=== PATIENT | female | born 1945 | race Caucasian/White ===

== ENCOUNTER 2016-07-19 06:02 | Inpatient (IN) | payer MEDICARE, SELFPAY ==
[2016-07-14 15:57] LABS: BASOPHILS 1.2 %; BASOPHILS ABSOLUTE 0.06 10/3/uL (0.0-0.16); EOSINOPHILS 5.8 %; HEMATOCRIT 33.7 % (36.0-48.0); IMMATURE GRANULOCYTES 0.2 %; IMMATURE GRANULOCYTES ABSOLUTE 0.01 10/3/uL (0.0-0.11); LYMPHOCYTES 32.7 %; MEAN CORPUS HGB CONC 32.6 g/dL (32.0-36.0); MEAN CORPUSCULAR HEMOGLOB 33.1 pg (26.0-34.0); MEAN CORPUSCULAR VOLUME 101.5 fL (80-100); MEAN PLATELET VOLUME 10.3 fL (9.2-13.0); MONOCYTES 7.1 %; MONOCYTES ABSOLUTE 0.37 10/3/uL (0.21-1.20); NEUTROPHILS ABSOLUTE 2.76 10/3/uL (2.02-8.40); PLATELET COUNT 169 10/3/uL (150-400); RED CELL COUNT 3.32 10/6/uL (4.0-5.6); WHITE BLOOD CELLS 5.2 10/3/uL (4.5-10.5)
[2016-07-14 16:07] LABS: A/G RATIO 1.1 (0.7-1.9); ALBUMIN 3.7 G/DL (3.5-5.0); BUN (BLOOD UREA NITROGEN) 15 MG/DL (6-23); CALCIUM, SERUM 8.9 MG/DL (8.5-10.4); CHLORIDE, SERUM 110 MMOL/L (96-112); CO2 (CARBON DIOXIDE) 30 MMOL/L (24-34); CREATININE 0.69 MG/DL (0.55-1.02); GFR AFRICAN AMERICAN 104 ML/MIN (>=60); GFR NON AFRICAN AMERICAN 89 ML/MIN (>=60); GLOBULIN 3.5 G/DL (2.5-4.1); POTASSIUM, SERUM 3.9 MMOL/L (3.5-5.3); SGOT(AST) 26 U/L (5-40); SGPT(ALT) 25 U/L (5-65); SODIUM, SERUM 145 MMOL/L (135-148); TOTAL PROTEIN 7.2 G/DL (6.0-8.5)
[2016-07-14 16:08] LABS: ALKALINE PHOSPHATASE 84 U/L (45-117); GLUCOSE, SERUM 74 MG/DL (60-99); TOTAL BILIRUBIN 0.4 MG/DL (0-1.2)
[2016-07-14 16:11] LABS: INTERNATIONAL NORMAL RATI 1.2 UNITS (-); PROTIME (NOT ORD) 14.6 SEC (12.0-14.5)
[2016-07-14 16:13] LABS: MANUAL DIFF NO %
[2016-07-14 16:52] LABS: ASCORBIC ACID (UR NOT ORDER) NEG (NEG); BILIRUBIN, URINE NEGATIVE (NEG); KETONE, URINE NEGATIVE (NEG); LEUKOCYTE ESTERASE(NOT OR NEG (NEG); WBC (NOT ORDERED) (RFLEX) 1 (0-5)
--- NOTE | ~2016-07-19 | CN ---
Consultation Report [facility] [address] [place]. [address] NAME: SHAHEEN CORTEZ : 49 STATUS : ADM IN PAT#: [id number] AGE: 70 ADM/REG DATE : 07/19/16 MR#: [id number] REPORT SERV DATE: 07/25/16 DICTATED BY: IGOR MONACO DATE: 07/25/16 REPORT STATUS : Draft TRANSCRIBED BY: ANITA DATE: 07/25/16 DATE OF CONSULTATION: 07/25/2016 SERVICE: Otolaryngology. REFERRING DIAGNOSIS: Dysphagia. HISTORY OF PRESENT ILLNESS: This is a 70-year-old white female with multiple comorbidities, who underwent a left carotid endarterectomy about six days ago. She had some rebleeding and I had to go in and re-explore the wound. Since that time, she has developed significant dysphagia, which per the primary team has improved. Over the past few days, her wound has also improved. I was asked to come and evaluate for any problems in the hypopharynx that maybe leading to her dysphagia. PAST MEDICAL HISTORY: Includes diverticulosis, coronary artery disease, peripheral vascular disease, diabetes, morbid obesity, rheumatoid arthritis, history of stroke, and hypertension. PAST SURGICAL HISTORY: Includes gastric bypass, coronary artery bypass grafting, left carotid endarterectomy, appendectomy, partial thyroidectomy, cholecystectomy, and hernia repair. SOCIAL HISTORY: Denies use of tobacco or alcohol. ALLERGIES: SHE IS ALLERGIC TO LIDOCAINE. PHYSICAL EXAMINATION: The patient was awake, alert, in no acute distress with a pleasant affect. She had an obvious swelling in the left neck with an incision that was healing well. Palpation of that area revealed somewhat firm swelling around the area of the incision. The patient spoke with a normal voice and was breathing without laboring. PROCEDURE NOTE: After I discussed the fiberoptic laryngoscopy with the patient, I coated the scope with lubricant, passed it through the left side of the nose. I was able to see well through her nasal cavity. Nasopharyngeal mucosa and eustachian tube ostium were normal in appearance. Further back, she had normal and symmetric lingual tonsils. The hypopharyngeal mucosa was normal. She had good adduction and abduction of her vocal cords. She did have significant ecchymosis and some mild swelling of the left arytenoid and in the piriform sinus on that side, the side of the surgery. There was no pooling of saliva. The patient otherwise seemed to be swallowing well. She tolerated this procedure well without complications. ASSESSMENT: Dysphagia. According to the primary team, the patient did have some preoperative dysphagia, although it was not as bad as it is now. She is not currently tolerating a soft diet as she was before. Given my examination today, I believe this will Consultation Report [address] [facility] [place] [address] NAME: SHAHEEN CORTEZ : [birth year] STATUS : ADM IN [facility]#: [id number] AGE: 70 ADM/REG DATE : 07/19/16 MR#: [id number] REPORT SERV DATE: 07/25/16 DICTATED BY: IGOR MONACO DATE: 07/25/16 REPORT STATUS : Draft TRANSCRIBED BY: ANITA DATE: 07/25/16 recover with a little more time. She had significant bruising and swelling on the left side of her neck, and I believe that is the chief cause of her dysphagia. There was no evidence of vocal cord dysfunction or significant airway or orodigestive tract swelling that would explain her dysphagia. Thank you for this consultation. If there are any questions, please do not hesitate to call [phone]. PS/ANITA Igor Monaco MD / [id number] CC: Fortunato Paez M.D.
--- NOTE | ~2016-07-19 | OP ---
Record Of Operation [facility] [address] [place]. [address] NAME: SHAHEEN CORTEZ : [birth year] STATUS : ADM IN PAT#: [id number] AGE: 70 ADM/REG DATE : 07/19/16 MR#: [id number] REPORT SERV DATE: 07/19/16 DICTATED BY: FORTUNATO BILLY DATE: 07/19/16 REPORT STATUS : Draft TRANSCRIBED BY: MODL DATE: 07/19/16 DATE OF PROCEDURE: 07/19/2016 PREOPERATIVE DIAGNOSIS: Left neck swelling status post left carotid endarterectomy. POSTOPERATIVE DIAGNOSIS: Left neck swelling status post left carotid endarterectomy with severe hypertension and left neck hematoma. OPERATIVE PROCEDURES: Left neck exploration for evacuation of hematoma status post left carotid endarterectomy. OPERATIVE SURGEON: Fortunato Billy M.D. ANESTHESIA: General endotracheal anesthesia, AA. PERTINENT HISTORY: The patient is a 70-year-old female approximately 3 hours status post left carotid endarterectomy patch found to have swelling in the neck after a period of severe hypertension. The patient had the swelling occur acutely, and therefore was returned to the operating room. OPERATIVE FINDINGS: The patient had no active hemorrhage in the surgical site. The carotid endarterectomy patch was hemostatic with excellent pulse distally. There was fluid and some old clot in the left neck wound which was completely evacuated. OPERATIVE PROCEDURE: The patient was taken to the operating room and placed in supine position. Anesthesia was obtained with endotracheal intubation. The patient's left neck were then prepped and draped in usual fashion. Left neck incision was opened. A small amount of fluid and small amount of hematoma was encountered around the carotid artery. This was completely evacuated. The space was irrigated with copious amounts of saline, and the carotid artery patch was examined closely and found to be hemostatic as was the suture line. No surgical hemorrhage was noted, and the pack was placed in the neck and allowed to remain in place for 5 minutes. Pack was removed, and excellent hemostasis was noted. The deep cervical fascia was closed with running #1 Stratafix suture. The platysma muscle was closed with running #1 Stratafix suture. The skin was approximated with running 2-0 Stratafix suture. Sterile dressings were applied. The patient tolerated the procedure well and extubated in the operating room, and taken to the recovery room in stable condition. SHARON/ANITA Fortunato Billy M.D. / [id number] Record Of Operation [facility] [address] [place]. [address] NAME: SHAHEEN CORTEZ GALINA : 49 STATUS : ADM IN PAT#: [id number] AGE: 70 ADM/REG DATE : 07/19/16 MR#: [id number] REPORT SERV DATE: 07/19/16 DICTATED BY: FORTUNATO BILLY DATE: 07/19/16 REPORT STATUS : Draft TRANSCRIBED BY: ANITA DATE: 07/19/16 CC: Fortunato Billy M.D.
--- NOTE | ~2016-07-19 | OP ---
Record Of Operation [facility] [address] [place]. [address] NAME: SHAHEEN CORTEZ : 49 STATUS : ADM IN PAT#: [id number] AGE: 70 ADM/REG DATE : 07/19/16 MR#: [id number] REPORT SERV DATE: 07/19/16 DICTATED BY: FORTUNATO PAEZ DATE: 07/19/16 REPORT STATUS : Draft TRANSCRIBED BY: MODL DATE: 07/19/16 DATE OF PROCEDURE: 07/19/2016 PREOPERATIVE DIAGNOSIS: Ulcerated carotid artery stenosis, left with symptoms. POSTOPERATIVE DIAGNOSIS: Ulcerated carotid artery stenosis, left with symptoms. PROCEDURE: Left carotid endarterectomy with shunt, and CorMatrix arterioplasty. OPERATIVE SURGEON: Fortunato Paez M.D. ANESTHESIA: General endotracheal anesthesia, AA. DRAINS: No drains were placed. PERTINENT HISTORY: The patient is a 70-year-old female, referred by Dr. Azul with symptomatic left carotid artery stenoses, she had previous coronary artery bypass grafting. OPERATIVE FINDINGS: The patient had a tight stenoses involving the left common internal carotid artery with a large ulcerated plaque. OPERATIVE PROCEDURE: The patient was taken to the operating room and placed in position and anesthesia obtained. The patient was prepped and draped in the usual fashion. The left neck was then prepped and draped in the usual manner, and left neck incision was made into the sternocleidomastoid muscle. Platysma muscle was incised. The deep cervical fascia was incised. Retractors were placed. The carotid sheath was then identified, the hypoglossal nerve was identified and preserved. The carotid sheath was opened. The vagus nerve was identified and preserved. The common internal and external carotid arteries were all dissected and looped with vessel loops. Heparin was then infused and allowed to circulate for three minutes. Clamps were applied. The common carotid artery was opened, the arteriotomy extended across the plaque into the internal carotid artery. A #10 flexible [place] shunt was placed re-establishing flow, meticulous dissection was then required to remove the entire plaque from the common internal carotid arteries. This was removed in its entirety. A CorMatrix arterioplasty was brought on to the field, and cut to appropriate shape and length. Arterioplasty was then closed with running 7-0 Prolene suture. Shunt was removed. Good hemostasis was noted. Good Doppler signal was noted distally. The wound was irrigated with antibiotic saline. The deep cervical fascia closed with Stratafix suture with #1 size. The platysma was closed running #1 Stratafix suture. The skin and subcu tissue were closed in two layer fashion. Sterile dressings were applied. The patient tolerated the procedure well and extubated in the operating room, and taken to the recovery room in stable condition. SHARON/ANITA Record Of [address] [address] NAME: SHAHEEN CORTEZ : 49 STATUS : ADM IN [facility]#: [id number] AGE: 70 ADM/REG DATE : 07/19/16 MR#: [id number] REPORT SERV DATE: 07/19/16 DICTATED BY: FORTUNATO PAEZ DATE: 07/19/16 REPORT STATUS : Draft TRANSCRIBED BY: ANITA DATE: 07/19/16 Fortunato Paez M.D. / [id number] CC: Fortunato Paez M.D.
--- NOTE | ~2016-07-19 | DS ---
Discharge Summary [facility] [address] [place]. [address] NAME: SHAHEEN CORTEZ : 49 STATUS : DIS IN PAT#: [id number] AGE: 70 ADM/REG DATE : 07/19/16 MR#: [id number] REPORT SERV DATE: 08/05/16 DICTATED BY: FORTUNATO PAEZ DATE: 08/04/16 REPORT STATUS : Draft TRANSCRIBED BY: ANITA DATE: 08/04/16 Data Collection from hospitalization DISCHARGE DIAGNOSES: 1. Ulcerated carotid artery stenosis-left. 2. Type 2 diabetes mellitus. 3. Hypertension. 4. History of transient ischemic attack. 5. Coronary artery disease. 6. Attention-deficit hyperactivity disorder. 7. Anxiety and depression. 8. Anemia. 9. History of breast cancer. CONSULTANTS: 1. Bari Harden MD. 2. Bronson Azul M.D. PROCEDURES: 1. Left carotid endarterectomy with shunt and CorMatrix arterioplasty, 07/19/2016. 2. Left neck exploration for evacuation of hematoma, status post left carotid endarterectomy, 07/19/2016. PATHOLOGY: Carotid artery left endarterectomy-atheromatous plaque. DISCHARGE MEDICATIONS: Adderall 10 mg twice a day, aspirin 325 mg daily, vitamin B12 1000 mcg IM monthly, ferrous sulfate 300 mg daily, Lopid 600 mg twice a day, Amaryl 4 mg daily, Synthroid 175 mcg daily, Cozaar 25 mg daily, Centrum tablet one tablet daily, Nitrostat 0.4 mg sublingually as needed, Prilosec 20 mg twice a day, Evista 60 mg at bedtime, Aldactone 25 mg twice a day as needed, Ultram 50 mg every 12 hours as needed, folic acid 1 tablet daily. CONDITION ON DISCHARGE: Stable. DISPOSITION: The patient was discharged home on a regular diet with activities as instructed. Follow up with Dr. Bronson Azul, 08/07/2016; and would follow up with Dr. Power Purdy, 08/09/2016. She would follow up with nh, 08/21/2016. HOSPITAL COURSE: This is a 70-year-old female who has been referred by Dr. Azul with symptomatic left carotid artery stenosis. She had undergone previous coronary artery bypass grafting. Treatment options were discussed, and it was elected to proceed with surgical intervention. She was admitted to the hospital at this time for further evaluation and treatment. Upon admission, she was taken to the operating room where she underwent the above-mentioned procedure. She tolerated this well. There were no complications. Approximately 3 hours postoperatively, the patient was found to have swelling in the neck after a period of severe hypertension. The patient has swelling that occurred acutely and was taken back to the operating room where she underwent the above-mentioned procedure. She tolerated this well. Discharge Summary [address] [address] NAME: SHAHEEN CORTEZ : 49 STATUS : DIS IN PAT#: [id number] AGE: 70 ADM/REG DATE : 07/19/16 MR#: [id number] REPORT SERV DATE: 08/05/16 DICTATED BY: FORTUNATO PAEZ DATE: 08/04/16 REPORT STATUS : Draft TRANSCRIBED BY: ANITA DATE: 08/04/16 There were no complications. On postop day #1, she did complain of some difficulty swallowing. She was in a sinus rhythm. Swallow studies were going to be performed. Speech/Language Pathology performed a bedside swallow study. Aspiration precautions were in place. She was seen by Dr. Bronson Azul. The patient was comfortable and alert. She had some slight dysphagia. Her speech was not as clear as normal. On 07/21/2016, her speech had improved. She said that swallowing felt better, but she was unable to tolerate pills. Her voice quality was more clear. She had mild edema about the wound. Speech/Language Pathology performed bedside swallow study. There was moderately sluggish laryngeal elevation. Aspiration precautions remained in place. On 07/22/2016, chest x-ray was negative. Her lungs were clear. She remained n.p.o. She had no cardiovascular issues at this time. On 07/23/2016, she had adequate urine output. Left neck edema was decreasing. Her voice was becoming stronger. Repeat swallow study was going to be performed. Speech/Language Pathology performed bedside swallow evaluation. There were no overt signs or symptoms of aspiration. On 07/25/2016, her wound looked okay. She appeared to have good incisional healing. She was tolerating a pureed diet but was not tolerating mechanical soft. She was seen in consultation by Dr. Bari Harden regarding dysphagia. He was asked to evaluate for any problems in the hypopharynx that may be leading to her dysphagia. She did have some obvious swelling in the left neck with an incision that was healing well. Palpation of that area revealed somewhat firm swelling around the area of incision. She was speaking in a normal voice and was breathing without laboring. We discussed fiberoptic laryngoscopy with the patient, and she agreed. This was performed. She did have significant ecchymosis and some mild swelling of the left arytenoid and in the piriform sinus on that side which was the site of surgery. The patient otherwise seemed to be swallowing well. She tolerated this without complication. According to the primary team, the patient did have some preoperative dysphagia although it was not as bad as it is now. We felt that this would recover with a little more time. She did have significant bruising and swelling on the left side of her neck, and he felt this was the chief cause of her dysphagia. There was no evidence of vocal cord dysfunction or significant airway for marylou-digestive tract swelling that would explain the dysphagia. Next day, she did complain of some burning with urination. She still has some focal edema around the incision. Her lungs were clear. IV fluids were stopped. 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 Power Purdy, her chronic anemia. He recommended keeping hematocrit greater than 26. The patient has a history of chronic slow GI bleed of unknown etiology. After multiple scopes, she was transfused one unit of packed red blood cells. Discharge planning was performed. On 07/27/2016, she had no new complaints. She was swallowing better. She was wanting to go home. She looked comfortable with swallowing. Discharge instructions were given. Due to her improved and stable condition, she was discharged home with the above-stated instructions. Information collected by: Love Fuentes I submit the above information as my discharge summary. KRISTI/MODJulian Discharge Summary [place] [address] [address] NAME: SHAHEEN CORTEZ : 47 STATUS : DIS IN PAT#: [id number] AGE: 70 ADM/REG DATE : 07/19/16 MR#: [id number] REPORT SERV DATE: 08/05/16 DICTATED BY: FORTUNATO PAEZ DATE: 08/04/16 REPORT STATUS : Draft TRANSCRIBED BY: ANITA DATE: 08/04/16 Fortunato Paez M.D. / [id number] CC: Francisca Hickman Dr., MD
[~2016-07-19 06:02] MED LIST: ADDER10 PO; ADDERALL15 MG PO; ADDERALL20 MG PO; AMARYL4 PO; ASA5GR PO; ASAB PO; ASABAYER PO; ATV.5 PO; B121000P IM; BANOPHEN25 MG; BUSPAR10; CALTRA600D PO; CENTRUM PO; CENTRUM TAB1 TAB PO; COREG6 PO; COZ25 PO; COZ50 PO; CRESTOR5 MG PO; DETROL2 PO; DETROLLA4 PO; EFFEXXR75 PO; EVISTA60 PO; FEOSOL200 MG PO; FESO4 PO; FOLIC PO; JANUVIA100 MG PO; LANTUS SC; LATISSE; LEVOTHYROXIN100 MCG PO; LEVOTHYROXIN125 MCG PO; LOM PO; LOPID6 PO; LORTAB PO; LORTABLIQ PO; MELATONIN5 M1 PO; NEULASTA IM; NITROII20C TOP; NITROQUICK0.4 MG SL; NITROSTAT0.4 MG SL; NOLV10 PO; OXYCOD PO; PR25 PO; PRILO PO; RED YEAS1 PO; RITALIN20 PO; SPIRO25 PO; SYNTHROID175 MCG PO; ULTRACET PO; ULTRAM50 PO; VIST50 PO; VITAMIN C100 MG PO; VITC500 PO; Z100 PO
[2016-07-20 03:44] LABS: BASOPHILS 0.3 %; BASOPHILS ABSOLUTE 0.03 10/3/uL (0.0-0.16); EOSINOPHILS 1.5 %; EOSINOPHILS ABSOLUTE 0.13 10/3/uL (0.0-0.53); HEMOGLOBIN 8.9 g/dL (12.0-16.0); IMMATURE GRANULOCYTES 0.2 %; IMMATURE GRANULOCYTES ABSOLUTE 0.02 10/3/uL (0.0-0.11); LYMPHOCYTES 17.7 %; LYMPHOCYTES ABSOLUTE 1.53 10/3/uL (0.67-4.30); MEAN CORPUS HGB CONC 31.4 g/dL (32.0-36.0); MEAN CORPUSCULAR HEMOGLOB 32.7 pg (26.0-34.0); MEAN PLATELET VOLUME 10.3 fL (9.2-13.0); MONOCYTES 10.6 %; MONOCYTES ABSOLUTE 0.92 10/3/uL (0.21-1.20); NEUTROPHILS 69.7 %; NEUTROPHILS ABSOLUTE 6.02 10/3/uL (2.02-8.40); PLATELET COUNT 152 10/3/uL (150-400); RBC DISTRIBUTION WIDTH 15.4 % (12.0-16.0); RED CELL COUNT 2.72 10/6/uL (4.0-5.6)
[2016-07-20 03:45] LABS: HEMATOCRIT 28.3 % (36.0-48.0); MANUAL DIFF NO %; WHITE BLOOD CELLS 8.7 10/3/uL (4.5-10.5)
[2016-07-20 04:02] LABS: BUN (BLOOD UREA NITROGEN) 14 MG/DL (6-23); CALCIUM, SERUM 8.5 MG/DL (8.5-10.4); CHLORIDE, SERUM 109 MMOL/L (96-112); CREATININE 0.65 MG/DL (0.55-1.02); GFR AFRICAN AMERICAN 106 ML/MIN (>=60); GFR NON AFRICAN AMERICAN 91 ML/MIN (>=60); POTASSIUM, SERUM 3.9 MMOL/L (3.5-5.3); SODIUM, SERUM 143 MMOL/L (135-148)
[2016-07-20 04:05] LABS: CO2 (CARBON DIOXIDE) 25 MMOL/L (24-34); GLUCOSE, SERUM 136 MG/DL (60-99)
[2016-07-21 05:02] LABS: BASOPHILS 0.3 %; BASOPHILS ABSOLUTE 0.02 10/3/uL (0.0-0.16); EOSINOPHILS 1.2 %; EOSINOPHILS ABSOLUTE 0.09 10/3/uL (0.0-0.53); HEMATOCRIT 30.6 % (36.0-48.0); HEMOGLOBIN 9.8 g/dL (12.0-16.0); IMMATURE GRANULOCYTES 0.1 %; IMMATURE GRANULOCYTES ABSOLUTE 0.01 10/3/uL (0.0-0.11); LYMPHOCYTES 16.6 %; LYMPHOCYTES ABSOLUTE 1.29 10/3/uL (0.67-4.30); MEAN CORPUSCULAR HEMOGLOB 33.1 pg (26.0-34.0); MEAN CORPUSCULAR VOLUME 103.4 fL (80-100); MEAN PLATELET VOLUME 9.8 fL (9.2-13.0); MONOCYTES 11.4 %; MONOCYTES ABSOLUTE 0.89 10/3/uL (0.21-1.20); NEUTROPHILS 70.4 %; NEUTROPHILS ABSOLUTE 5.48 10/3/uL (2.02-8.40); PLATELET COUNT 148 10/3/uL (150-400); RBC DISTRIBUTION WIDTH 14.8 % (12.0-16.0); RED CELL COUNT 2.96 10/6/uL (4.0-5.6); WHITE BLOOD CELLS 7.8 10/3/uL (4.5-10.5)
[2016-07-21 05:09] LABS: MANUAL DIFF NO %
[2016-07-21 05:15] LABS: CALCIUM, SERUM 8.7 MG/DL (8.5-10.4); CHLORIDE, SERUM 102 MMOL/L (96-112); CO2 (CARBON DIOXIDE) 29 MMOL/L (24-34); CREATININE 0.65 MG/DL (0.55-1.02); GFR AFRICAN AMERICAN 106 ML/MIN (>=60); GFR NON AFRICAN AMERICAN 91 ML/MIN (>=60); POTASSIUM, SERUM 3.6 MMOL/L (3.5-5.3); SODIUM, SERUM 142 MMOL/L (135-148)
[2016-07-21 05:23] LABS: BUN (BLOOD UREA NITROGEN) 10 MG/DL (6-23); GLUCOSE, SERUM 165 MG/DL (60-99)
[2016-07-23 06:49] LABS: BUN (BLOOD UREA NITROGEN) 11 MG/DL (6-23); CALCIUM, SERUM 8.8 MG/DL (8.5-10.4); CHLORIDE, SERUM 99 MMOL/L (96-112); CO2 (CARBON DIOXIDE) 26 MMOL/L (24-34); CREATININE 0.48 MG/DL (0.55-1.02); GFR AFRICAN AMERICAN 117 ML/MIN (>=60); GFR NON AFRICAN AMERICAN 101 ML/MIN (>=60); GLUCOSE, SERUM 182 MG/DL (60-99); POTASSIUM, SERUM 3.6 MMOL/L (3.5-5.3); SODIUM, SERUM 138 MMOL/L (135-148)
[2016-07-25 16:49] LABS: BASOPHILS 0.5 %; BASOPHILS ABSOLUTE 0.03 10/3/uL (0.0-0.16); EOSINOPHILS 5.4 %; EOSINOPHILS ABSOLUTE 0.34 10/3/uL (0.0-0.53); HEMATOCRIT 28.7 % (36.0-48.0); HEMOGLOBIN 9.7 g/dL (12.0-16.0); IMMATURE GRANULOCYTES 0.2 %; IMMATURE GRANULOCYTES ABSOLUTE 0.01 10/3/uL (0.0-0.11); LYMPHOCYTES 24.8 %; LYMPHOCYTES ABSOLUTE 1.56 10/3/uL (0.67-4.30); MEAN CORPUSCULAR HEMOGLOB 33.1 pg (26.0-34.0); MEAN PLATELET VOLUME 9.7 fL (9.2-13.0); MONOCYTES 9.9 %; MONOCYTES ABSOLUTE 0.62 10/3/uL (0.21-1.20); NEUTROPHILS 59.2 %; NEUTROPHILS ABSOLUTE 3.73 10/3/uL (2.02-8.40); RBC DISTRIBUTION WIDTH 14.1 % (12.0-16.0); RED CELL COUNT 2.93 10/6/uL (4.0-5.6); WHITE BLOOD CELLS 6.3 10/3/uL (4.5-10.5)
[2016-07-25 16:52] LABS: MANUAL DIFF NO %; MEAN CORPUS HGB CONC 33.8 g/dL (32.0-36.0); PLATELET COUNT 246 10/3/uL (150-400)
[2016-07-25 16:59] LABS: CHLORIDE, SERUM 103 MMOL/L (96-112); CO2 (CARBON DIOXIDE) 27 MMOL/L (24-34); CREATININE 0.75 MG/DL (0.55-1.02); GFR AFRICAN AMERICAN 95 ML/MIN (>=60); GFR NON AFRICAN AMERICAN 82 ML/MIN (>=60); POTASSIUM, SERUM 3.7 MMOL/L (3.5-5.3); SODIUM, SERUM 139 MMOL/L (135-148)
[2016-07-25 17:00] LABS: BUN (BLOOD UREA NITROGEN) 15 MG/DL (6-23); GLUCOSE, SERUM 94 MG/DL (60-99)
[2016-07-26 04:23] LABS: BASOPHILS 1.6 %; BASOPHILS ABSOLUTE 0.08 10/3/uL (0.0-0.16); EOSINOPHILS 8.1 %; HEMOGLOBIN 8.6 g/dL (12.0-16.0); IMMATURE GRANULOCYTES 0.2 %; IMMATURE GRANULOCYTES ABSOLUTE 0.01 10/3/uL (0.0-0.11); LYMPHOCYTES 31.7 %; LYMPHOCYTES ABSOLUTE 1.56 10/3/uL (0.67-4.30); MANUAL DIFF NO %; MEAN CORPUS HGB CONC 33.1 g/dL (32.0-36.0); MEAN CORPUSCULAR HEMOGLOB 33.1 pg (26.0-34.0); MEAN PLATELET VOLUME 9.9 fL (9.2-13.0); MONOCYTES 10.8 %; MONOCYTES ABSOLUTE 0.53 10/3/uL (0.21-1.20); NEUTROPHILS 47.6 %; NEUTROPHILS ABSOLUTE 2.34 10/3/uL (2.02-8.40); PLATELET COUNT 215 10/3/uL (150-400); RBC DISTRIBUTION WIDTH 14.2 % (12.0-16.0); WHITE BLOOD CELLS 4.9 10/3/uL (4.5-10.5)
[2016-07-26 04:40] LABS: BUN (BLOOD UREA NITROGEN) 15 MG/DL (6-23); CALCIUM, SERUM 9.2 MG/DL (8.5-10.4); CHLORIDE, SERUM 108 MMOL/L (96-112); CO2 (CARBON DIOXIDE) 26 MMOL/L (24-34); CREATININE 0.65 MG/DL (0.55-1.02); GFR AFRICAN AMERICAN 106 ML/MIN (>=60); GFR NON AFRICAN AMERICAN 91 ML/MIN (>=60); POTASSIUM, SERUM 4.2 MMOL/L (3.5-5.3); SODIUM, SERUM 143 MMOL/L (135-148)
[2016-07-26 04:49] LABS: GLUCOSE, SERUM 156 MG/DL (60-99)
[2016-07-26 15:38] LABS: ASCORBIC ACID (UR NOT ORDER) NEG (NEG); BILIRUBIN, URINE NEGATIVE (NEG); KETONE, URINE NEGATIVE (NEG); WBC (NOT ORDERED) (RFLEX) 18 (0-5)
[2016-07-26 15:41] LABS: LEUKOCYTE ESTERASE(NOT OR TRACE (NEG)
[2016-07-27 07:15] LABS: BASOPHILS 1.1 %; BASOPHILS ABSOLUTE 0.05 10/3/uL (0.0-0.16); EOSINOPHILS 6.8 %; EOSINOPHILS ABSOLUTE 0.31 10/3/uL (0.0-0.53); HEMOGLOBIN 9.9 g/dL (12.0-16.0); LYMPHOCYTES 37.9 %; LYMPHOCYTES ABSOLUTE 1.73 10/3/uL (0.67-4.30); MEAN CORPUS HGB CONC 32.6 g/dL (32.0-36.0); MEAN CORPUSCULAR HEMOGLOB 31.5 pg (26.0-34.0); MEAN PLATELET VOLUME 9.9 fL (9.2-13.0); NEUTROPHILS 43.2 %; NEUTROPHILS ABSOLUTE 1.97 10/3/uL (2.02-8.40); PLATELET COUNT 237 10/3/uL (150-400); RBC DISTRIBUTION WIDTH 16.7 % (12.0-16.0); WHITE BLOOD CELLS 4.6 10/3/uL (4.5-10.5)
[2016-07-27 07:16] LABS: HEMATOCRIT 30.4 % (36.0-48.0); MANUAL DIFF NO %; MEAN CORPUSCULAR VOLUME 96.8 fL (80-100); RED CELL COUNT 3.14 10/6/uL (4.0-5.6)
[2017-01-25] MEDS ORDERED: FOLIC ACID OTC PO (22:20)
[2017-01-25] MEDS ORDERED: [UNRECOGNIZED DRUG - OTHER] PO (22:21)
[2017-01-25] MEDS ORDERED: ULTRAM50 PO (22:22)
[2017-01-25] MEDS ORDERED: NITROSTAT0.4 MG SL (22:22)
[2017-01-25] MEDS ORDERED: ADDER10 PO (22:22)
[2017-01-25] MEDS ORDERED: KLONO5 PO (22:23)
[2017-01-25] MEDS ORDERED: COZ25 PO (22:24)
[2017-01-25] MEDS ORDERED: SPIRO25 PO (22:24)
[2017-01-25] MEDS ORDERED: SYNTHROID175 MCG PO (22:24)
[2017-01-25] MEDS ORDERED: BENTYL10 PO (22:25)
[2017-01-25] MEDS ORDERED: AMARYL2 PO (22:25)
[2017-01-25] MEDS ORDERED: EVISTA60 PO (22:26)
[2017-01-25] MEDS ORDERED: PRILOSEC OTC20 MG PO (22:26)
[2017-01-25] MEDS ORDERED: ASAB PO (22:27)
[2017-01-25] MEDS ORDERED: CENTRUM PO (22:28)
[2017-01-25] MEDS ORDERED: B121000P IM/SC (22:28)
== END 2016-07-27 17:18 | disposition home or self-care (01) | DRG 38 ==
LOC: SDC/OF 06:02 → PACU 10:21 → CVICU 19:30 → 5NO 07-22 10:38
PROVIDERS: Thoracic Surgery (Cardiothoracic Vascular Surgery)
PROC: 03CL0ZZ Extirpation of Matter from Left Internal Carotid Artery, Open Approach (ICD-10-PCS; 2016-07-19)
PROC: 03CL0ZZ Extirpation of Matter from Left Internal Carotid Artery, Open Approach (ICD-10-PCS; principal; 2016-07-19 07:45)
PROC: 30233N1 Transfusion of Nonautologous Red Blood Cells into Peripheral Vein, Percutaneous Approach (ICD-10-PCS; 2016-07-26)
DX: I65.22 Occlusion and stenosis of left carotid artery (principal); I97.638 Postprocedural hematoma of a circulatory system organ or structure following other circulatory system procedure; I77.2 Rupture of artery; I10 Essential (primary) hypertension; G47.33 Obstructive sleep apnea (adult) (pediatric); K21.9 Gastro-esophageal reflux disease without esophagitis; R13.10 Dysphagia, unspecified; I25.10 Atherosclerotic heart disease of native coronary artery without angina pectoris; I73.9 Peripheral vascular disease, unspecified; M06.9 Rheumatoid arthritis, unspecified; D53.9 Nutritional anemia, unspecified; F90.9 Attention-deficit hyperactivity disorder, unspecified type; F41.9 Anxiety disorder, unspecified; F32.9 Major depressive disorder, single episode, unspecified; Z86.73 Personal history of transient ischemic attack (TIA), and cerebral infarction without residual deficits; Z88.5 Allergy status to narcotic agent; Z98.84 Bariatric surgery status; Z98.890 Other specified postprocedural states; Z82.49 Family history of ischemic heart disease and other diseases of the circulatory system; Z85.3 Personal history of malignant neoplasm of breast
CPT/HCPCS: 36415; 71010; 71020; 80048; 80053; 81001; 82962; 83735; 85025; 85610; 86850; 86900; 86901; 86920; 87641; 88304; 88311; 92610-GN; 93005; A9270-GY; C1782; G8996-CK-GN; G8996-CN-GN; G8997-CK-GN; G8997-CN-GN; G8998-CK-GN; G8998-CN-GN; J0330; J0690; J1170; J1580; J2250; J2270; J2370; J2405; J2550; J2795; J3010; J3370; P9016

== ENCOUNTER 2016-08-26 19:50 | Inpatient (IN) | payer MEDICARE ==
--- NOTE | ~2016-08-26 | DS ---
Discharge Summary [facility] [address] [place]. [address] NAME: SHAHEEN CORTEZ : 49 STATUS : DIS IN PAT#: [id number] AGE: 70 ADM/REG DATE : 08/26/16 MR#: [id number] REPORT SERV DATE: 09/01/16 DICTATED BY: TEJA SWIFT DATE: 08/31/16 REPORT STATUS : Draft TRANSCRIBED BY: MODL DATE: 08/31/16 ADMISSION DATE: 08/26/2016 DISCHARGE DATE: 08/31/2016 DISPOSITION: Discharged to home. CONDITION ON DISCHARGE: Stable. ADVICE ON DISCHARGE: To follow up with the PCP in the next one to two weeks and with GI doctor as scheduled before. DIAGNOSES ON DISCHARGE: 1. Bright red blood per rectum - resolved. The patient underwent a colonoscopy that showed multiple colonic diverticula, not bleeding; however, at this time. 2. The source was likely diverticular bleed that has stopped right now. 3. Acute blood loss anemia secondary to above - this has resolved after the patient has received multiple units of blood transfusion. 4. Other problems that are stable in this patient include attention deficit hyperactivity disorder, which is stable with medications. 5. Generalized anxiety, which is stable. 6. Hypothyroidism - stable. 7. History of breast cancer, which is stable. 8. Hypertension, which is stable. 9. Carotid artery disease status post left carotid endarterectomy - stable. 10.Coronary artery disease status post CABG which is also stable at this time. 11.Other diagnoses in this patient also include restless legs syndrome, chronic heart murmur, and rheumatoid arthritis. All the above are chronic and stable at this time. BRIEF HOSPITAL COURSE: The patient is a 70-year-old white female patient, who was admitted on 08/26/2016 with bright red blood per-rectum. The patient said that she bled out a whole lot filling the toilet bowl, and this really scared her, and as this happened several times, she came into the ER immediately. She was admitted initially, and was given multiple units of blood transfusion. On admission, her hemoglobin and hematocrit were as low as 5 something and 15. This dramatically improved, and her H and H have come back up to 10+ and nearly 30 hematocrit. After the bleeding completely resolved, the patient said that she was really interested in getting a repeat colonoscopy by Dr. Valente at this time as she was wondering what the source of her bleed was. She also suggested that previously when she had the colonoscopy, she had an inadequate colon prep. At this time, she is willing to go through the prep and get another colonoscopy. The patient did undergo colonoscopy on 08/30/[address] Valente, and he was gracious enough to repeat the colonoscopy, and found that the prep was adequate at this time. The findings revealed multiple small and large-mouth diverticula in the sigmoid colon, the descending colon, and internal hemorrhoids. Discharge Summary [place] [facility] [address] [place]. [address] NAME: SHAHEEN CORTEZ : 49 STATUS : DIS IN PAT#: [id number] AGE: 70 ADM/REG DATE : 08/26/16 MR#: [id number] REPORT SERV DATE: 09/01/16 DICTATED BY: TEJA SWIFT DATE: 08/31/16 REPORT STATUS : Draft TRANSCRIBED BY: MODJulian DATE: 08/31/16 There is a good chance that the diverticula were the source of bleed in this patient, but currently; however, they were not bleeding. Hence, the patient is being sent home in stable condition on 08/31/2016 as she is able to eat and keep the regular diet down, and has no other symptoms, and is ambulatory also. I have the most recent labs on this patient and her CBC on 08/31/2016 showed WBC count of 6, hemoglobin 10.5, hematocrit 32.1, and platelet count of 142. Her blood glucose levels have also been fairly under control at this time, and I have just advised her to resume her Amaryl that she takes at home. Her electrolyte profile that was done on 08/30/2016 shows completely normal electrolyte profile including BUN and creatinine. The patient will be sent home on the following medications: The patient has been advised to reduce her aspirin from 325 mg a day to 81 mg once a day; in addition to that, she will continue taking her tramadol 50 mg p.o. q.6 hours p.r.n.; levothyroxine 175 mcg p.o. daily; Aldactone 25 mg p.o. b.i.d.; Prilosec 20 mg p.o. b.i.d.; Evista 60 mg p.o. at bedtime; Cozaar 25 mg p.o. daily; vitamin B12 and folic acid; Amaryl 4 mg p.o. daily for the diabetes, which is well controlled; Lopid 600 mg p.o. b.i.d. for dyslipidemia; Adderall 10 mg daily that she takes for ADD; MiraLAX powder 1 packet once a day; and also ferrous sulfate 300 mg p.o. daily. The patient is being discharged home in stable condition and I have spent about 40 minutes in coordinating discharge care of this patient including [id number] encounter and summarizing this discharge. RRA/MODL Teja Swift M.D. / [id number] CC: Francisca Bhat JULIA
--- NOTE | ~2016-08-26 | EGD ---
EGD REPORT [facility] [address] [place] [address] NAME: SUMMER CORTEZ : 49 STATUS : ADM IN PAT#: [id number] AGE: 70 ADM/REG DATE : 08/26/16 MR#: [id number] REPORT SERV DATE: 08/30/16 DICTATED BY: RUSTY BECKMAN DATE: 08/30/16 REPORT STATUS : Draft [facility]ANS[facility]ED [facility]: [facility] DATE: 08/30/16 Endoscopy Center Patient Name: Summer Cortez Date of : 1945 Attending MD: RUSTY BECKMAN MD Procedure Date No Time: 08/30/2016 Procedure: Colonoscopy Indications: Hematochezia, Anemia Referring MD: ANNY DUMONT Medicines: as per anesthesia Complications: No immediate complications. Procedure: Pre-Anesthesia Assessment: - ASA Grade Assessment: III - A patient with severe systemic disease. After I obtained informed consent, the scope was passed under direct vision. Throughout the procedure, the patient's blood pressure, pulse, and oxygen saturations were monitored continuously. The PCF [id number] was introduced through the anus and advanced to the cecum, identified by appendiceal orifice and ileocecal valve. The colonoscopy was somewhat difficult due to multiple diverticula in the colon, significant looping and a tortuous colon. The patient tolerated the procedure. The quality of the bowel preparation was adequate to identify polyps. Findings: The perianal and digital rectal examinations were normal. Multiple small and large-mouthed diverticula were found in the sigmoid colon and in the descending colon. Internal hemorrhoids were found during endoscopy and were moderate. Impression: - Diverticulosis in the sigmoid colon and in the descending colon. - Internal hemorrhoids. Recommendation: - Continue present medications. Procedure Code(s): --- Professional --- 43621, Colonoscopy, flexible, proximal to splenic flexure; diagnostic, with or without collection of specimen(s) by brushing or washing, with or without colon decompression (separate procedure) Diagnosis Code(s): --- Professional --- EGD REPORT [address] [place]. [address] NAME: SUMMER CORTEZ : 49 STATUS : ADM IN [facility]#: [id number] AGE: 70 ADM/REG DATE : 08/26/16 MR#: [id number] REPORT SERV DATE: 08/30/16 DICTATED BY: RUSTY BECKMAN DATE: 08/30/16 REPORT STATUS : Draft TRANSCRIBED BY: [employer] DATE: 08/30/16 K64.8, Other hemorrhoids K57.30, Diverticulosis of large intestine without perforation or abscess without bleeding K92.1, Melena D64.9, Anemia, unspecified CPT copyright 2013 [employer]. All rights reserved. The codes documented in this report are preliminary and upon embalmer/funeral director review may be revised to meet current compliance requirements. RUSTY BECKMAN MD 08/30/2016 1:27 PM This report has been signed electronically. Number of Addenda: 0 Note Initiated On: 08/30/2016 12:50 PM Scope Withdrawal Time 0 hours 5 minutes [address] [place], [place] [address] [place], [place] [id number]
--- NOTE | ~2016-08-26 | CN ---
Consultation Report [facility] [address] [place]. [address] NAME: SHAHEEN CORTEZ : 49 STATUS : ADM IN [facility]#: [id number] AGE: 70 ADM/REG DATE : 08/26/16 MR#: [id number] REPORT SERV DATE: 08/28/16 DICTATED BY: JESSICA LABOY DATE: 08/28/16 REPORT STATUS : Draft TRANSCRIBED BY: MODL DATE: 08/28/16 GI CONSULTATION DATE OF CONSULTATION: 08/27/2016 REASON FOR CONSULTATION: Rectal bleeding. HISTORY OF PRESENT ILLNESS: Ms. Cortez is a 70-year-old, white female with a history of coronary artery disease, status post CABG, breast cancer in 2009, status post chemoradiation therapy, carotid artery disease, status post left carotid endarterectomy with angioplasty earlier this year, hypothyroidism, status post partial thyroidectomy, stroke, rheumatoid arthritis, DJD, and osteoarthritis. She presented to [facility] with a chief complaint of rectal bleeding which she says is more than just streaks of bright red blood. She normally has occasional dark stools secondary to her iron. She is also on aspirin. After her rectal bleeding, she also reported some weakness as well. Minimal cramping during this episode in her abdomen. H and H last week per the patient was 9 and 28. Her hemoglobin and hematocrit on admission were 5.6 and 17.8. They have come up after a couple of units of PRBCs to 7 and 20.5 respectively. She had been seen by Dr. Bronson Valente in 04/2016 for further evaluation of her iron-deficiency anemia and an EGD was performed which showed gastric bypass anatomy and an intact staple line. Colonoscopy showed diverticulosis. No clear source of bleeding was seen. Her INR is 1.2. Platelets 95. PAST MEDICAL HISTORY: Coronary artery disease, status post CABG, hypothyroidism, hypertension, breast cancer in 2009, status post chemoradiation therapy, umbilical hernia, carotid disease, chronic lymphedema, stroke, RA, DJD, osteoarthritis. PAST SURGICAL HISTORY: CABG, left carotid endarterectomy, partial thyroidectomy. MEDICATIONS: Reviewed. ALLERGIES: REVIEWED. SOCIAL HISTORY: No smoking, alcohol, or drug use. FAMILY HISTORY: Noncontributory. PHYSICAL EXAMINATION: VITAL SIGNS: The patient is afebrile. Vital signs are stable. GENERAL: The patient is morbidly obese, no acute distress. HEENT: Atraumatic, normocephalic. Anicteric. Mucous membranes moist. CARDIAC: S1, S2. CHEST: Clear with distant breath sounds. ABDOMEN: Soft. Minimal tenderness to palpation in periumbilical area but without any rebound or guarding. Bowel sounds are normoactive. Consultation Report [facility] [address] [place]. [address] NAME: SHAHEEN CORTEZ : 49 STATUS : ADM IN [facility]#: [id number] AGE: 70 ADM/REG DATE : 08/26/16 MR#: [id number] REPORT SERV DATE: 08/28/16 DICTATED BY: JESSICA LABOY DATE: 08/28/16 REPORT STATUS : Draft TRANSCRIBED BY: MODL DATE: 08/28/16 LABORATORY DATA: WBC 4.5, hemoglobin 7, hematocrit 20.5, platelets 95. INR is 1.2. Sodium 147, potassium 3.9, chloride 116, bicarb 21, BUN 18, creatinine 0.69, and glucose 156. Liver enzymes normal. CT scan was ordered and pending at this time. IMPRESSION AND PLAN: Lower GI bleed of unclear etiology, may be diverticular bleed versus ischemic. We will obtain CT scan and awaiting this which has already been ordered. Continue to monitor H and H and transfuse as needed. We will discuss with Dr. Bronson Valente who will resume care in the morning. SANDIP/ANITA Jessica Laboy MD / [id number] CC: MD ANNY Brink
--- NOTE | ~2016-08-26 | HP ---
History And Physical [place] [id number] [facility] [place]. [address] NAME: SHAHEEN CORTEZ : 49 STATUS : ADM IN PAT#: [id number] AGE: 70 ADM/REG DATE : 08/26/16 MR#: [id number] REPORT SERV DATE: 08/27/16 DICTATED BY: SHERINE CLARK DATE: 08/26/16 REPORT STATUS : Draft TRANSCRIBED BY: MODL DATE: 08/26/16 DATE OF ADMISSION: 08/26/2016 CHIEF COMPLAINT: Weakness for one week and red blood per rectum for two days. HISTORY OF PRESENT ILLNESS: This is a very pleasant 70-year-old female. She has an extensive past medical history significant for prior GI bleed, unclear according to the patient, etiology. She had in the past upper endoscopy with normal esophagus and gastric bypass, which had a normal-sized pouch intact with last EGD in 2015. She also had a colonoscopy, which did show some diverticulosis, performed by Dr. Bronson Valente, who is the patient nurse practitioner also. Past medical history significant of coronary artery disease, status post CABG, followed by Dr. Azul; hypothyroidism; breast cancer in 2009 with chemo and radiation treatment, followed by Dr. Purdy; chronic ventral umbilical hernia; hypertension; carotid disease. She underwent recent left carotid endarterectomy and angioplasty performed by Dr. Fortunato Paez in August of this month. History of hypothyroidism with partial thyroidectomy, chronic lymphedema, restless legs syndrome, history of stroke, heart murmur, rheumatoid arthritis, degenerative joint disease, osteoarthritis, prior pneumonia, presenting today to [facility] with complaints of red blood per rectum and weakness. Apparently, the patient has been feeling extremely weak for about one week, intermittent headaches and increasing shortness of breath. She is on iron and aspirin. She stopped them three days ago since her stools were dark due to her iron on a regular basis and then she started to see that she had significant bowel movements. They were dark red, no clots, but her weakness got progressively worse. She is telling me that she saw Dr. Purdy yesterday, who did a CBC on her and she is telling me that her hemoglobin was around 9 and hematocrit around 28 and as a result, the fact that she has been so weak and she has been seeing red blood in her stools prompted her to come to [facility] Emergency Room. She did have increasing weakness, some intermittent headaches, and intermittent chest pain, and also she has had weakness, but no syncopal or presyncopal episodes. No palpitation. No nausea or vomiting. No hematemesis. No melena. No abdominal pain. She has been evaluated in the emergency room and she has been found to have a hemoglobin 5.6 and hematocrit of 17.8, and after discussing with Dr. Laboy who is covering for Dr. Valente, the patient's nurse practitioner. The patient has been admitted to the Hospitalist Service for further evaluation and treatment and GI evaluation. Important to note the patient currently is not orthostatic. PAST MEDICAL HISTORY: Significant for coronary artery disease, status post CABG, followed by Dr. Azul; history of GI bleed secondary to in past possible diverticulosis in 2015; left breast cancer in 2009 with radiation and chemotherapy; history of hypertension; peripheral vascular disease with recent left carotid endarterectomy; hypothyroidism; obstructive sleep apnea; morbid obesity. She has had a history of gastric bypass, history of restless legs syndrome, chronic lymphedema, history of CVA, chronic heart murmur, and history of cystitis. PAST SURGICAL HISTORY: Includes CABG in 2007, gastric bypass in 2009, incisional hernia repair, bilateral knee replacement, cholecystectomy, appendectomy, and partial thyroidectomy. History And Physical [address] [address] NAME: SHAHEEN CORTEZ : 49 STATUS : ADM IN [facility]#: [id number] AGE: 70 ADM/REG DATE : 08/26/16 MR#: [id number] REPORT SERV DATE: 08/27/16 DICTATED BY: SHERINE CLARK DATE: 08/26/16 REPORT STATUS : Draft TRANSCRIBED BY: MODJulian DATE: 08/26/16 ALLERGIES: THE PATIENT IS ALLERGIC TO LIDOCAINE. SOCIAL HISTORY: No tobacco. No alcohol. No IV drugs. She lives in [place], [place], alone. She has no children. She is . FAMILY HISTORY: Significant for heart disease, diabetes, rheumatoid arthritis, and stroke. MEDICATIONS: At home include Adderall, aspirin, vitamin B12, iron sulfate, folic acid, Lopid, Amaryl, Synthroid, losartan, multivitamin, Nitrostat, Prilosec, Evista, Aldactone, and Ultram. REVIEW OF SYSTEMS: A 14-point review of systems has been obtained and pertinent positive has been listed into the history of present illness. Otherwise, negative except those underlying above. PHYSICAL EXAMINATION: VITAL SIGNS: Currently, the patient is afebrile, blood pressure 117/54 on arrival, heart rate 89, respiratory rate 20, and saturating 100% on room air. GENERAL: She is a very pleasant, pale-appearing female, in no acute distress. She is alert and oriented x3. Nonfocal. She follows commands appropriately. HEENT: Show pupils equal, round, reactive to light. Extraocular movements intact. No JVD. No lymphadenopathy. No thyromegaly appreciated. CHEST: Shows bilateral air entry. Clear anteroposterior. No wheezes, crackles, or rhonchi appreciated. CARDIOVASCULAR: She has regular rate and rhythm. S1, S2 positive. No S3, no S4. There is 1/6 systolic murmur of the left upper border radiating anteriorly. ABDOMEN: Soft with positive bowel sounds. Nontender. No guarding. No rebound. EXTREMITIES: No clubbing, cyanosis, or edema. NEUROLOGIC: The patient is alert and oriented x3. She is nonfocal. She follows all her commands appropriately. LABORATORY DATA: Labs from today include sodium 142, potassium 4.5, chloride 111, CO2 of 24, BUN 22, creatinine 0.87, and glucose is 217. Her total bilirubin is 0.3. Alkaline phosphatase 70, ALT 19, AST 15. Hemoglobin is 5.6, hematocrit 17.8, and platelets are 177. INR is 1.2. ASSESSMENT: This is a very pleasant 70-year-old female with: 1. Probable lower gastrointestinal bleed. 2. Acute blood loss anemia. 3. History of gastric bypass in 2009. 4. History of gastrointestinal bleed. 5. History of iron deficiency as well as vitamin B12 deficiency anemia. 6. History of coronary artery disease, status post prior coronary artery bypass graft. 7. Peripheral vascular disease. 8. History of hypothyroidism. 9. History of chronic lymph edema. History And Physical [address] [address] NAME: SHAHEEN CORTEZ : 49 STATUS : ADM IN [facility]#: [id number] AGE: 70 ADM/REG DATE : 08/26/16 MR#: [id number] REPORT SERV DATE: 08/27/16 DICTATED BY: SHERINE CLARK DATE: 08/26/16 REPORT STATUS : Draft TRANSCRIBED BY: ANITA DATE: 08/26/16 PLAN: 1. The patient is going to be admitted to monitored bed. We are going to keep her on clear liquid diet per GI recommendation, Dr. Laboy, GI. The patient already currently transfused two units of packed red blood cells. Place her on Protonix drip. H and H q.6 hours and transfuse as indicated. Hold the aspirin and continue to hold the iron. Check all anemia studies and get a CAT scan of the abdomen and pelvis without contrast in the morning. 2. History of coronary artery disease, status post CABG. We are going to check on set of cardiac enzymes. Check an EKG as well. 3. History of hypertension. We are going to provide p.r.n. hydralazine as needed. 4. History of diabetes, type 2, noninsulin-dependent. Hold her Amaryl and Accu-Cheks q.a.c. and at bedtime, sliding scale insulin subcutaneously, level 2. 5. History of ADHD. Continue her home medications. 6. High history of hyperlipidemia. We will continue her home medication. We will provide reasonable pain and nausea control as well as GI and DVT prophylaxis with SCDs. That has been discussed extensively with the patient. All the questions have been answered in full. Further workup and recommendation pending above. It is worthwhile to note that the patient is going to be followed by Dr. Hany Tong. ALO/ANITA Sherine Clark M.D. / [id number] CC: Breanna Rothman
[2016-08-26 18:36] LABS: BASOPHILS 0.8 %; BASOPHILS ABSOLUTE 0.07 10/3/uL (0.0-0.16); EOSINOPHILS 0.4 %; EOSINOPHILS ABSOLUTE 0.03 10/3/uL (0.0-0.53); IMMATURE GRANULOCYTES 0.2 %; IMMATURE GRANULOCYTES ABSOLUTE 0.02 10/3/uL (0.0-0.11); LYMPHOCYTES 18.1 %; LYMPHOCYTES ABSOLUTE 1.51 10/3/uL (0.67-4.30); MEAN CORPUS HGB CONC 31.5 g/dL (32.0-36.0); MONOCYTES 4.2 %; MONOCYTES ABSOLUTE 0.35 10/3/uL (0.21-1.20); NEUTROPHILS 76.3 %; NEUTROPHILS ABSOLUTE 6.35 10/3/uL (2.02-8.40); NUCLEATED RED BLOOD CELLS 0.5 /100WBC (0-0); PLATELET COUNT 177 10/3/uL (150-400); RBC DISTRIBUTION WIDTH 18.8 % (12.0-16.0)
[2016-08-26 18:37] LABS: HEMATOCRIT 17.8 % (36.0-48.0); HEMOGLOBIN 5.6 g/dL (12.0-16.0); MANUAL DIFF NO %; MEAN CORPUSCULAR VOLUME 101.7 fL (80-100); RED CELL COUNT 1.75 10/6/uL (4.0-5.6); WHITE BLOOD CELLS 8.3 10/3/uL (4.5-10.5)
[2016-08-26 18:47] LABS: INTERNATIONAL NORMAL RATI 1.2 UNITS (-); PARTIAL THROMBO TIME 26.3 SEC (22.5-37.2); PROTIME (NOT ORD) 14.9 SEC (12.0-14.5)
[2016-08-26 18:52] LABS: CALCIUM, SERUM 8.3 MG/DL (8.5-10.4); CHLORIDE, SERUM 111 MMOL/L (96-112); CO2 (CARBON DIOXIDE) 24 MMOL/L (24-34); CREATININE 0.87 MG/DL (0.55-1.02); GFR AFRICAN AMERICAN 79 ML/MIN (>=60); GFR NON AFRICAN AMERICAN 68 ML/MIN (>=60); GLOBULIN 2.9 G/DL (2.5-4.1); POTASSIUM, SERUM 4.5 MMOL/L (3.5-5.3); SGOT(AST) 15 U/L (5-40); SGPT(ALT) 19 U/L (5-65); SODIUM, SERUM 142 MMOL/L (135-148); TOTAL BILIRUBIN 0.3 MG/DL (0-1.2); TOTAL PROTEIN 5.9 G/DL (6.0-8.5)
[2016-08-26 18:54] LABS: ALKALINE PHOSPHATASE 70 U/L (45-117); BUN (BLOOD UREA NITROGEN) 22 MG/DL (6-23); GLUCOSE, SERUM 217 MG/DL (60-99)
[2016-08-26] MEDS ORDERED: EVISTA60 PO (20:29)
[2016-08-27 05:14] LABS: ASCORBIC ACID (UR NOT ORDER) 40 (NEG); BILIRUBIN, URINE NEGATIVE (NEG); KETONE, URINE NEGATIVE (NEG); LEUKOCYTE ESTERASE(NOT OR NEG (NEG); WBC (NOT ORDERED) (RFLEX) < 1 (0-5)
[2016-08-27 06:57] LABS: BASOPHILS 1.3 %; BASOPHILS ABSOLUTE 0.06 10/3/uL (0.0-0.16); EOSINOPHILS 3.6 %; EOSINOPHILS ABSOLUTE 0.16 10/3/uL (0.0-0.53); IMMATURE GRANULOCYTES 0.7 %; IMMATURE GRANULOCYTES ABSOLUTE 0.03 10/3/uL (0.0-0.11); LYMPHOCYTES 36.3 %; LYMPHOCYTES ABSOLUTE 1.62 10/3/uL (0.67-4.30); MEAN CORPUSCULAR HEMOGLOB 31.8 pg (26.0-34.0); MEAN PLATELET VOLUME 10.5 fL (9.2-13.0); MONOCYTES 6.3 %; MONOCYTES ABSOLUTE 0.28 10/3/uL (0.21-1.20); NEUTROPHILS 51.8 %; NEUTROPHILS ABSOLUTE 2.31 10/3/uL (2.02-8.40); RBC DISTRIBUTION WIDTH 19.6 % (12.0-16.0)
[2016-08-27 06:58] LABS: WHITE BLOOD CELLS 4.5 10/3/uL (4.5-10.5)
[2016-08-27 06:59] LABS: HEMATOCRIT 20.5 % (36.0-48.0); MEAN CORPUS HGB CONC 34.1 g/dL (32.0-36.0); MEAN CORPUSCULAR VOLUME 93.2 fL (80-100); PLATELET COUNT 95 10/3/uL (150-400)
[2016-08-27 07:00] LABS: MANUAL DIFF NO %
[2016-08-27 07:04] LABS: CALCIUM, SERUM 7.9 MG/DL (8.5-10.4); CHLORIDE, SERUM 116 MMOL/L (96-112); CO2 (CARBON DIOXIDE) 21 MMOL/L (24-34); CREATININE 0.69 MG/DL (0.55-1.02); GFR AFRICAN AMERICAN 104 ML/MIN (>=60); GFR NON AFRICAN AMERICAN 89 ML/MIN (>=60); POTASSIUM, SERUM 3.9 MMOL/L (3.5-5.3); SODIUM, SERUM 147 MMOL/L (135-148)
[2016-08-27 07:06] LABS: BUN (BLOOD UREA NITROGEN) 18 MG/DL (6-23); GLUCOSE, SERUM 156 MG/DL (60-99)
[2016-08-27 18:58] LABS: HEMATOCRIT 27.8 % (36.0-48.0)
[2016-08-27 19:03] LABS: INTERNATIONAL NORMAL RATI 1.3 UNITS (-); PROTIME (NOT ORD) 15.7 SEC (12.0-14.5)
[2016-08-28 00:37] LABS: HEMATOCRIT 28.3 % (36.0-48.0); HEMOGLOBIN 9.7 g/dL (12.0-16.0)
[2016-08-28 05:55] LABS: BUN (BLOOD UREA NITROGEN) 16 MG/DL (6-23); CALCIUM, SERUM 7.8 MG/DL (8.5-10.4); CHLORIDE, SERUM 114 MMOL/L (96-112); CO2 (CARBON DIOXIDE) 23 MMOL/L (24-34); CREATININE 0.73 MG/DL (0.55-1.02); GFR AFRICAN AMERICAN 98 ML/MIN (>=60); GFR NON AFRICAN AMERICAN 85 ML/MIN (>=60); GLUCOSE, SERUM 133 MG/DL (60-99); PHOSPHORUS, SERUM 3.4 MG/DL (2.5-4.5); POTASSIUM, SERUM 3.7 MMOL/L (3.5-5.3); SODIUM, SERUM 147 MMOL/L (135-148)
[2016-08-28 05:56] LABS: HEMATOCRIT 28.3 % (36.0-48.0); HEMOGLOBIN 9.5 g/dL (12.0-16.0); MEAN CORPUS HGB CONC 33.6 g/dL (32.0-36.0); MEAN CORPUSCULAR HEMOGLOB 30.6 pg (26.0-34.0); MEAN CORPUSCULAR VOLUME 91.3 fL (80-100); MEAN PLATELET VOLUME 9.6 fL (9.2-13.0); PLATELET COUNT 101 10/3/uL (150-400); RBC DISTRIBUTION WIDTH 19.2 % (12.0-16.0); WHITE BLOOD CELLS 4.3 10/3/uL (4.5-10.5)
[2016-08-28 05:58] LABS: MANUAL DIFF YES %
[2016-08-28 07:20] LABS: ANISOCYTOSIS 1+ (5-10/OIF) (0-5/OIF); BAND NEUTROPHILS 6 %; EOSINOPHILS 1 %; EOSINOPHILS ABSOLUTE (CALC) 0.04 10/3/uL (0.0-0.53); LYMPHOCYTES 30 %; LYMPHOCYTES ABSOLUTE (CALC) 1.29 10/3/uL (0.67-4.30); MONOCYTES 9 %; MONOCYTES ABSOLUTE (CALC) 0.39 10/3/uL (0.21-1.20); NEUTROPHILS ABSOLUTE (CALC) 2.58 10/3/uL (2.02-8.40); PLATELET ESTIMATE SLT DEC (ADEQUATE); SEGMENTED NEUTROPHIL (0) 54 %; TOTAL NUCLEATED CELLS 100
[2016-08-28 07:21] LABS: MACROCYTES 1+ (5-10/OIF) (0-5/OIF); POLYCHROMASIA 1+ (2-5/OIF) (0-1/OIF)
[2016-08-28 10:17] LABS: HEMATOCRIT 30.3 % (36.0-48.0); HEMOGLOBIN 10.2 g/dL (12.0-16.0)
[2016-08-29 06:38] LABS: BASOPHILS 1.3 %; BASOPHILS ABSOLUTE 0.05 10/3/uL (0.0-0.16); EOSINOPHILS 8.1 %; EOSINOPHILS ABSOLUTE 0.32 10/3/uL (0.0-0.53); HEMATOCRIT 30.8 % (36.0-48.0); HEMOGLOBIN 10.3 g/dL (12.0-16.0); IMMATURE GRANULOCYTES 0.3 %; IMMATURE GRANULOCYTES ABSOLUTE 0.01 10/3/uL (0.0-0.11); LYMPHOCYTES 36.4 %; LYMPHOCYTES ABSOLUTE 1.44 10/3/uL (0.67-4.30); MANUAL DIFF NO %; MEAN CORPUS HGB CONC 33.4 g/dL (32.0-36.0); MEAN CORPUSCULAR HEMOGLOB 31.2 pg (26.0-34.0); MEAN CORPUSCULAR VOLUME 93.3 fL (80-100); MEAN PLATELET VOLUME 9.9 fL (9.2-13.0); MONOCYTES 11.4 %; MONOCYTES ABSOLUTE 0.45 10/3/uL (0.21-1.20); NEUTROPHILS 42.5 %; NEUTROPHILS ABSOLUTE 1.69 10/3/uL (2.02-8.40); PLATELET COUNT 123 10/3/uL (150-400); RBC DISTRIBUTION WIDTH 19.2 % (12.0-16.0)
[2016-08-29 06:50] LABS: CALCIUM, SERUM 8.7 MG/DL (8.5-10.4); CHLORIDE, SERUM 111 MMOL/L (96-112); CO2 (CARBON DIOXIDE) 26 MMOL/L (24-34); CREATININE 0.78 MG/DL (0.55-1.02); GFR AFRICAN AMERICAN 91 ML/MIN (>=60); GFR NON AFRICAN AMERICAN 78 ML/MIN (>=60); GLUCOSE, SERUM 133 MG/DL (60-99); SODIUM, SERUM 146 MMOL/L (135-148)
[2016-08-29 06:51] LABS: BUN (BLOOD UREA NITROGEN) 10 MG/DL (6-23)
[2016-08-30 06:17] LABS: INTERNATIONAL NORMAL RATI 1.1 UNITS (-); PARTIAL THROMBO TIME 26.3 SEC (22.5-37.2); PROTIME (NOT ORD) 14.3 SEC (12.0-14.5)
[2016-08-30 06:18] LABS: BASOPHILS 0.6 %; BASOPHILS ABSOLUTE 0.03 10/3/uL (0.0-0.16); EOSINOPHILS 6.1 %; EOSINOPHILS ABSOLUTE 0.31 10/3/uL (0.0-0.53); HEMATOCRIT 31.9 % (36.0-48.0); HEMOGLOBIN 10.5 g/dL (12.0-16.0); IMMATURE GRANULOCYTES 0.4 %; IMMATURE GRANULOCYTES ABSOLUTE 0.02 10/3/uL (0.0-0.11); LYMPHOCYTES ABSOLUTE 1.53 10/3/uL (0.67-4.30); MANUAL DIFF NO %; MEAN CORPUS HGB CONC 32.9 g/dL (32.0-36.0); MEAN CORPUSCULAR VOLUME 94.1 fL (80-100); MONOCYTES 11.2 %; MONOCYTES ABSOLUTE 0.57 10/3/uL (0.21-1.20); NEUTROPHILS 51.7 %; NEUTROPHILS ABSOLUTE 2.64 10/3/uL (2.02-8.40); PLATELET COUNT 134 10/3/uL (150-400); RED CELL COUNT 3.39 10/6/uL (4.0-5.6); WHITE BLOOD CELLS 5.1 10/3/uL (4.5-10.5)
[2016-08-30 06:25] LABS: CALCIUM, SERUM 8.6 MG/DL (8.5-10.4); CHLORIDE, SERUM 109 MMOL/L (96-112); CO2 (CARBON DIOXIDE) 26 MMOL/L (24-34); GFR AFRICAN AMERICAN 103 ML/MIN (>=60); GFR NON AFRICAN AMERICAN 89 ML/MIN (>=60); GLUCOSE, SERUM 128 MG/DL (60-99); POTASSIUM, SERUM 3.6 MMOL/L (3.5-5.3); SODIUM, SERUM 146 MMOL/L (135-148)
[2016-08-30 06:27] LABS: BUN (BLOOD UREA NITROGEN) 6 MG/DL (6-23)
[2016-08-31 05:42] LABS: BASOPHILS 0.3 %; BASOPHILS ABSOLUTE 0.02 10/3/uL (0.0-0.16); EOSINOPHILS 4.5 %; EOSINOPHILS ABSOLUTE 0.27 10/3/uL (0.0-0.53); HEMATOCRIT 32.1 % (36.0-48.0); HEMOGLOBIN 10.5 g/dL (12.0-16.0); IMMATURE GRANULOCYTES 0.2 %; IMMATURE GRANULOCYTES ABSOLUTE 0.01 10/3/uL (0.0-0.11); LYMPHOCYTES 23.8 %; LYMPHOCYTES ABSOLUTE 1.43 10/3/uL (0.67-4.30); MEAN CORPUS HGB CONC 32.7 g/dL (32.0-36.0); MEAN CORPUSCULAR HEMOGLOB 31.4 pg (26.0-34.0); MEAN CORPUSCULAR VOLUME 96.1 fL (80-100); MEAN PLATELET VOLUME 9.9 fL (9.2-13.0); MONOCYTES 8.6 %; MONOCYTES ABSOLUTE 0.52 10/3/uL (0.21-1.20); NEUTROPHILS 62.6 %; NEUTROPHILS ABSOLUTE 3.77 10/3/uL (2.02-8.40); PLATELET COUNT 142 10/3/uL (150-400); RBC DISTRIBUTION WIDTH 18.9 % (12.0-16.0); RED CELL COUNT 3.34 10/6/uL (4.0-5.6)
[2016-08-31 05:44] LABS: MANUAL DIFF NO %
[2016-08-31] MEDS ORDERED: MIRALAX POWDER1 PKT PO (14:34)
[2017-01-25] MEDS ORDERED: FOLIC ACID OTC PO (22:20)
[2017-01-25] MEDS ORDERED: [UNRECOGNIZED DRUG - OTHER] PO (22:21)
[2017-01-25] MEDS ORDERED: NITROSTAT0.4 MG SL (22:22)
[2017-01-25] MEDS ORDERED: ADDER10 PO (22:22)
[2017-01-25] MEDS ORDERED: ULTRAM50 PO (22:22)
[2017-01-25] MEDS ORDERED: KLONO5 PO (22:23)
[2017-01-25] MEDS ORDERED: SYNTHROID175 MCG PO (22:24)
[2017-01-25] MEDS ORDERED: SPIRO25 PO (22:24)
[2017-01-25] MEDS ORDERED: COZ25 PO (22:24)
[2017-01-25] MEDS ORDERED: AMARYL2 PO (22:25)
[2017-01-25] MEDS ORDERED: BENTYL10 PO (22:25)
[2017-01-25] MEDS ORDERED: EVISTA60 PO (22:26)
[2017-01-25] MEDS ORDERED: PRILOSEC OTC20 MG PO (22:26)
[2017-01-25] MEDS ORDERED: ASAB PO (22:27)
[2017-01-25] MEDS ORDERED: CENTRUM PO (22:28)
[2017-01-25] MEDS ORDERED: B121000P IM/SC (22:28)
== END 2016-08-31 15:20 | disposition home or self-care (01) | DRG 378 ==
LOC: ER 19:50 → 7NO 23:27
PROVIDERS: Emergency Medicine; Hospitalist; Internal Medicine; Internal Medicine Gastroenterology; Nurse Practitioner Family
PROC: 30233N1 Transfusion of Nonautologous Red Blood Cells into Peripheral Vein, Percutaneous Approach (ICD-10-PCS; 2016-08-27)
PROC: 0DJD8ZZ Inspection of Lower Intestinal Tract, Via Natural or Artificial Opening Endoscopic (ICD-10-PCS; principal; 2016-08-30 14:00)
DX: K57.31 Diverticulosis of large intestine without perforation or abscess with bleeding (principal); D62 Acute posthemorrhagic anemia; E03.9 Hypothyroidism, unspecified; I25.10 Atherosclerotic heart disease of native coronary artery without angina pectoris; Z95.1 Presence of aortocoronary bypass graft; Z85.3 Personal history of malignant neoplasm of breast; Z98.84 Bariatric surgery status; Z92.21 Personal history of antineoplastic chemotherapy; M06.9 Rheumatoid arthritis, unspecified; M19.90 Unspecified osteoarthritis, unspecified site; Z79.82 Long term (current) use of aspirin; K64.8 Other hemorrhoids
CPT/HCPCS: 36415; 36430; 71010; 74176; 80048; 80053; 81001; 82962; 83735; 84100; 85014; 85018; 85025; 85610; 85730; 86850; 86900; 86901; 86920; 93005; 99285; A9270-GY; C9113; J1940; P9016